=== PATIENT | male | born 1975 | race Caucasian/White ===

== ENCOUNTER 2018-06-13 19:53 | Emergency (ER) | payer SELFPAY ==
[~2018-06-13] VITALS: Ht 172.7 cm; Wt 93.0 kg
[2018-06-13 19:55] VITALS: BP 125/90
[2018-06-13] MEDS ORDERED: ONDANSETRON HCL/PF 4 MG/2 ML VIAL IVP ONE (20:30)
[2018-06-13] MEDS ORDERED: PANTOPRAZOLE 40 MG VIAL IV ONE (20:30)
[2018-06-13] MEDS ORDERED: IV NS 0.9% 1,000 ML BAG IV ONE (20:30)
== END 2018-06-13 20:17 | disposition home or self-care (01) ==
LOC: ER 19:54
DX: R10.84 Generalized abdominal pain (principal); I10 Essential (primary) hypertension; F10.20 Alcohol dependence, uncomplicated; F17.200 Nicotine dependence, unspecified, uncomplicated; Z98.890 Other specified postprocedural states; Z88.0 Allergy status to penicillin; Z88.1 Allergy status to other antibiotic agents; Z60.2 Problems related to living alone; Z87.11 Personal history of peptic ulcer disease
CPT/HCPCS: A4606; Z7502; Z7610

== ENCOUNTER → 2018-06-17 | Emergency (ER) | payer SELFPAY ==
[~2018-06-17] VITALS: Ht 160 cm; Wt 77.1 kg
[2018-06-17 15:13] VITALS: BP 145/108
--- NOTE | 2018-06-17 15:30 | NUR ---
AMBULATED TO BATHROOM WITH STEADY GAIT, WAITING FOR ER BED
== END | disposition left against medical advice (07) ==
LOC: ER 15:14
DX: F10.20 Alcohol dependence, uncomplicated (principal); R10.11 Right upper quadrant pain; I10 Essential (primary) hypertension; F17.200 Nicotine dependence, unspecified, uncomplicated; Z98.890 Other specified postprocedural states; Z88.0 Allergy status to penicillin; Z88.1 Allergy status to other antibiotic agents; Z87.11 Personal history of peptic ulcer disease; Z60.2 Problems related to living alone; Y90.9 Presence of alcohol in blood, level not specified
CPT/HCPCS: A4606; Z7610

== ENCOUNTER 2018-06-18 05:13 | Emergency (ER) | payer SELFPAY ==
[~2018-06-18] VITALS: Ht 170.2 cm; Wt 93.0 kg
[2018-06-18] MEDS ORDERED: MORPHINE SULFATE INJ 2 MG/ML DISP.SYRIN IV ONE (05:30)
[2018-06-18] MEDS ORDERED: ONDANSETRON HCL/PF 4 MG/2 ML VIAL IV ONE (05:30)
--- NOTE | 2018-06-18 05:40 | NUR ---
Pt BIBRA FROM HOME. Pt IS VERBAL. NO S/S OF ACUTE DISTRESS OR SOB NOTED. PER Pt HAS BEEN DRINKING ALCOHOL FOR THE PAST 2 WEEKS, AND FELL DOWN THE STAIRS THIS MORNING, HITTING THE Rt SIDE OF HIS ABD, AND HIS HEAD. +KO, -N/V. BRUISING NOTED ON THE Rt SIDE OF ABD. SEEN BY
[2018-06-18] MEDS ORDERED: ONDANSETRON HCL/PF 4 MG/2 ML VIAL ONE (05:49)
[2018-06-18] MEDS ORDERED: MORPHINE SULFATE INJ 2 MG/ML DISP.SYRIN ONE (05:49)
[2018-06-18 05:55] LABS: BASOPHILS # (AUTO) 0.1 /CMM (0.0-0.2); BASOPHILS % (AUTO) 1.1 % (0.0-2.0); EOSINOPHILS % (AUTO) 0.6 % (0.0-6.0); HEMATOCRIT 41 % (39-51); HEMOGLOBIN 14.5 g/dL (13.5-17.5); LYMPHOCYTES # (AUTO) 1.9 /CMM (0.8-4.8); LYMPHOCYTES % (AUTO) 30.5 % (20.0-44.0); MEAN CORPUSCULAR HEMOGLOBIN 36 PG (26.0-33.0); MEAN CORPUSCULAR HGB CONC 35 g/dl (31.0-36.0); MEAN CORPUSCULAR VOLUME 102 fL (80-96); MONOCYTES # (AUTO) 0.5 /CMM (0.1-1.30); MONOCYTES % (AUTO) 8.3 % (2.0-12.0); NEUTROPHILS # (AUTO) 3.7 /CMM (1.8-8.9); NEUTROPHILS % (AUTO) 59.5 % (43.0-81.0); PLATELET COUNT (AUTO) 146 /CMM (150-450); RDW COEFFICIENT OF VARIATION 13.6 (11.5-15.0); RED BLOOD CELL COUNT(AUTO) 4.07 MIL/uL (4.5-6.0); WHITE BLOOD COUNT (AUTO) 6.2 K/uL (4.3-11.0)
--- NOTE | 2018-06-18 05:55 | NUR ---
BLOOD DRAWN FOR LAB WORK
[2018-06-18 06:09] LABS: CALCIUM, SERUM 7.9 mg/dL (8.5-10.1)
[2018-06-18 06:10] LABS: INR 0.94 (0.87-1.13)
[2018-06-18 06:17] LABS: BILIRUBIN,DIRECT 0.2 mg/dL (0.0-0.2); BILIRUBIN,TOTAL 0.8 mg/dL (0.2-1.0); TOTAL PROTEIN, SERUM 7.1 g/dL (6.4-8.2)
[2018-06-18] MEDS ORDERED: IV NS 0.9% 250 ML IV ONE (06:19)
[2018-06-18] MEDS ORDERED: IOHEXOL-300 100 ML VIAL IV ONE (06:19)
[2018-06-18] MEDS ORDERED: CT SWABBABLE VALVE TRANS SET 1 EA INFUS.SET MC ONE (06:19)
--- NOTE | 2018-06-18 06:20 | NUR ---
URINE SAMPLE COLLECTED. CALLED LAB FOR [facility]PET [employer]ER.
--- NOTE | 2018-06-18 06:32 | NUR ---
Pt BEING TAKEN FOR CT VIA WHEELCHAIR.
[2018-06-18 06:37] LABS: APPEARANCE,URINE CLEAR (CLEAR); BILIRUBIN,URINE NEGATIVE (NEGATIVE); BLOOD, URINE 1+ Ery/uL (NEGATIVE); COLOR,URINE YELLOW (YELLOW); KETONES,URINE NEGATIVE (NEGATIVE); LEUKOCYTE ESTERASE ,URINE NEGATIVE (NEGATIVE); NITRITE, URINE NEGATIVE (NEGATIVE); PROTEIN,URINE TRACE mg/dl (NEGATIVE); UGLUCOSE NEGATIVE (NEGATIVE); UROBILINOGEN,URINE 0.2 EU/dL (0.2)
--- NOTE | 2018-06-18 06:55 | NUR ---
Pt RETURNED BACK FROM CT
[2018-06-18 06:56] LABS: BACTERIA,URINE None seen /HPF (None Seen); RBC,URINE 0-2 /HPF (0-2); SQUAMOUS EPITHELIAL CELL,UR Rare /HPF (None Seen); WBC,URINE 0-2 /HPF (0-3)
[2018-06-18] MEDS ORDERED: LORAZEPAM INJ 2 MG/ML VIAL IV ONE (07:00)
[2018-06-18] MEDS ORDERED: LORAZEPAM INJ 2 MG/ML VIAL ONE (07:03)
--- NOTE | 2018-06-18 07:26 | NUR ---
Pt REMOVED IV. COVERED WITH GAUZE AND SECURED WITH TAPE TO STOP BLEEDING. Pt IS ATTEMPTING TO LEAVE AWOL. BUT WAS ABLE TO STOP Pt BEFORE HE LEFT THE BUILDING. REDIRECTED Pt TO HIS ROOM.
--- NOTE | 2018-06-18 07:28 | NUR ---
Patient discharged to home in stable condition. Written and verbal after care instructions given. Patient verbalizes understanding of instruction. Instructed pt not to drive. Pt stated he is calling an uber to pick him up. pt left walking with steady gait. no s/s of distress or sob noted.
[2018-06-18 07:31] VITALS: BP 148/86
== END 2018-06-18 07:32 | disposition home or self-care (01) ==
LOC: ER 05:15
DX: S22.31XA Fracture of one rib, right side, initial encounter for closed fracture (principal); S30.1XXA Contusion of abdominal wall, initial encounter; F10.10 Alcohol abuse, uncomplicated; F17.200 Nicotine dependence, unspecified, uncomplicated; I10 Essential (primary) hypertension; F41.9 Anxiety disorder, unspecified; Z98.890 Other specified postprocedural states; Z88.0 Allergy status to penicillin; Z88.1 Allergy status to other antibiotic agents; Z60.2 Problems related to living alone; W10.8XXA Fall (on) (from) other stairs and steps, initial encounter; Y93.89 Activity, other specified; Y92.89 Other specified places as the place of occurrence of the external cause; Y99.8 Other external cause status; Y90.9 Presence of alcohol in blood, level not specified
CPT/HCPCS: 36415; 71045; 71260; 74177; 80048; 80076; 80305; 81001; 85025; 85730; 86850; 96374; 96375; 99285; A4606; G0480; J2060; J2270; J2405; J7050; Q9967; Z7610; 81000-TC